=== PATIENT | female | born 1985 | race Hispanic/Latino ===

== ENCOUNTER 2017-08-04 14:21 | Emergency (ER) | payer MEDICAID ==
[2017-08-04 14:35] VITALS: BP 139/62
[2017-08-04] MEDS ORDERED: DUONEB *Not for PRN Use IH ONE (18:52)
[2017-08-04] MEDS ORDERED: DELTASONE PO ONE (18:53)
--- NOTE | 2017-08-04 19:30 | Emergency Department Report ---
- General Chief Complaint: Upper Respiratory Infection Stated Complaint: CHEST PAIN Time Seen by Provider: 08/04/17 18:51 Source: patient Mode of arrival: Ambulatory Limitations: No Limitations - History of Present Illness Initial Comments: 32-year-old female past medical history multiple medical allergies, asthma presents with complaint of one week of worsening productive cough and rhinorrhea sore throat. Patient states she has been using [id number] medicines with minimal relief of her symptoms. No audible wheezing or stridor. States that cough is productive with greenish yellow sputum. Patient states she recently came into contact with someone who was diagnosed with flu and is concerned that she may have developed flulike symptoms. Patient awake alert and oriented 3 accompanied by family member at bedside MD Complaint: cough, sore throat, rhinorrhea, sinus pain Onset/Timin -: week(s) Severity: moderate Improves With: OTC cold medicine Associated Symptoms: cough Treatments Prior to Arrival: "cold medicine" - Related Data Home Medications Medication Instructions Recorded Confirmed Last Taken Albuterol *Only Ed* [Proventil 2.5 mg IH Q4H PRN 01/31/16 06/03/16 Unknown 0.5% NEBS] Previous Rx's Medication Instructions Recorded Last Taken Type ALBUTEROL Inhaler [ProAir HFA 2 puff IH QID PRN #1 inha 08/04/17 Unknown Rx Inhaler] Acetaminophen [Acetaminophen TAB] 500 mg PO Q6HR PRN #30 tablet 08/04/17 Unknown Rx Azithromycin [Zithromax Z-KURT] 250 mg PO QDAY #6 tablet 08/04/17 Unknown Rx Phenylephrine/Dm/Acetaminop/GG 10 ml PO Q6H PRN #1 liquid 08/04/17 Unknown Rx [Mucinex Rccd-Owc-Mrqimethdx Lq] predniSONE [Deltasone] 40 mg PO QDAY #10 tab 08/04/17 Unknown Rx Allergies Allergy/AdvReac Type Severity Reaction Status Date / Time aspirin Allergy Nausea Verified 08/02/15 14:38 ciprofloxacin [From Cipro] Allergy Unknown Verified 08/02/15 14:38 ciprofloxacin HCl Allergy Unknown Verified 08/02/15 14:38 [From Cipro] phenazopyridine HCl Allergy Nausea Verified 01/31/16 11:46 [From Azo] tramadol Allergy Rash Verified 08/02/15 14:38 ED Review of Systems ROS: Stated complaint: CHEST PAIN Other details as noted in HPI Constitutional: denies: chills, fever Eyes: denies: eye pain, eye discharge, vision change ENT: denies: ear pain, throat pain Respiratory: cough. denies: shortness of breath, wheezing Cardiovascular: denies: chest pain, palpitations Endocrine: no symptoms reported Gastrointestinal: denies: abdominal pain, nausea, diarrhea Genitourinary: denies: urgency, dysuria, discharge Musculoskeletal: denies: back pain, joint swelling, arthralgia Skin: denies: rash, lesions Neurological: denies: headache, weakness, paresthesias Psychiatric: denies: anxiety, depression Hematological/Lymphatic: denies: easy bleeding, easy bruising ED Past Medical Hx - Past Medical History Previous Medical History?: Yes Hx GERD: Yes Hx Headaches / Migraines: Yes (migraines) Hx Asthma: Yes (last "attack" 01/18/16) Hx HIV: No Additional medical history: heart mumur - Surgical History Past Surgical History?: Yes Hx Cholecystectomy: Yes - Social History Smoking Status: Never Smoker Substance Use Type: None - Medications Home Medications: Home Medications Medication Instructions Recorded Confirmed Last Taken Type Albuterol *Only Ed* [Proventil 2.5 mg IH Q4H PRN 01/31/16 06/03/16 Unknown History 0.5% NEBS] ALBUTEROL Inhaler [ProAir HFA 2 puff IH QID PRN #1 inha 08/04/17 Unknown Rx Inhaler] Acetaminophen [Acetaminophen TAB] 500 mg PO Q6HR PRN #30 tablet 08/04/17 Unknown Rx Azithromycin [Zithromax Z-KURT] 250 mg PO QDAY #6 tablet 08/04/17 Unknown Rx Phenylephrine/Dm/Acetaminop/GG 10 ml PO Q6H PRN #1 liquid 08/04/17 Unknown Rx [Mucinex Brlq-Hza-Aqupdivebc Lq] predniSONE [Deltasone] 40 mg PO QDAY #10 tab 08/04/17 Unknown Rx ED Physical Exam - General Limitations: No Limitations General appearance: alert, in no apparent distress - Head Head exam: Present: atraumatic, normocephalic - Eye Eye exam: Present: normal appearance, PERRL, EOMI - ENT ENT exam: Present: mucous membranes moist - Neck Neck exam: Present: normal inspection - Respiratory Respiratory exam: Present: normal lung sounds bilaterally. Absent: respiratory distress - Cardiovascular Cardiovascular Exam: Present: regular rate, normal rhythm. Absent: systolic murmur, diastolic murmur, rubs, gallop - GI/Abdominal GI/Abdominal exam: Present: soft, normal bowel sounds - Extremities Exam Extremities exam: Present: normal inspection - Back Exam Back exam: Present: normal inspection - Neurological Exam Neurological exam: Present: alert, oriented X3, CN II-XII intact, normal gait - Psychiatric Psychiatric exam: Present: normal affect, normal mood - Skin Skin exam: Present: warm, dry, intact, normal color. Absent: rash ED Course Vital Signs 08/04/17 08/04/17 08/04/17 14:25 19:12 19:16 Temperature 98.6 F Pulse Rate 97 H Pulse Rate [ 65 74 Anterior Bilateral Throughout] Respiratory 16 Rate Respiratory 16 16 Rate [Anterior Bilateral Throughout] Blood Pressure 139/62 O2 Sat by Pulse 99 Oximetry ED Medical Decision Making - Medical Decision Making A/P: Acute bronchitis 1-will treat patient empirically with azithromycin, Mucinex, naproxen and albuterol inhaler, prednisone 2-follow-up with primary care doctor, flu swab negative, chest x-ray unremarkable Critical care attestation.: If time is entered above; I have spent that time in minutes in the direct care of this critically ill patient, excluding procedure time. ED Disposition Clinical Impression: Acute bronchitis Qualifiers: Bronchitis organism: unspecified organism Qualified Code(s): J20.9 - Acute bronchitis, unspecified Reactive airway disease Qualifiers: Asthma severity: unspecified severity Asthma persistence: unspecified Asthma complication type: with acute exacerbation Qualified Code(s): J45.901 - Unspecified asthma with (acute) exacerbation Disposition: DC-01 TO HOME OR SELFCARE Is pt being admited?: No Does the pt Need Aspirin: No Condition: Stable Instructions: Acute Bronchitis (ED), Reactive Airways Disease (ED) Prescriptions: Acetaminophen [Acetaminophen TAB] 500 mg PO Q6HR PRN #30 tablet PRN Reason: Pain ALBUTEROL Inhaler [ProAir HFA Inhaler] 2 puff IH QID PRN #1 inha PRN Reason: Shortness Of Breath Azithromycin [Zithromax Z-KURT] 250 mg PO QDAY #6 tablet Phenylephrine/Dm/Acetaminop/GG [Mucinex Cgkt-Lfs-Tstxjhitzl Lq] 10 ml PO Q6H PRN #1 liquid PRN Reason: Cough predniSONE [Deltasone] 40 mg PO QDAY #10 tab Referrals: FRANKI LO MD [Primary Care Provider] - 3-5 Days Time of Disposition: 21:31
--- NOTE | 2017-08-04 21:24 | XRay Report ---
FINAL REPORT EXAM: XR CHEST ROUTINE 2V HISTORY: coughing TECHNIQUE: Two views of the chest were performed Comparison: None FINDINGS: Heart size is normal. Lungs are clear and well expanded without focal infiltrate or consolidation. There is a platelike scar in the left lateral lower lung. Costophrenic angles are sharp. Imaged axial skeleton is unremarkable. IMPRESSION: Platelike scar left lateral lower lung. No focal infiltrate.
[2017-08-04] MEDS ORDERED: TYLENOL PO ONE (21:42)
== END 2017-08-04 20:50 | disposition home or self-care (01) ==
LOC: ED 14:21
DX: J45.909 Unspecified asthma, uncomplicated (principal); J20.9 Acute bronchitis, unspecified; K21.9 Gastro-esophageal reflux disease without esophagitis; G43.909 Migraine, unspecified, not intractable, without status migrainosus; Z88.6 Allergy status to analgesic agent; Z88.1 Allergy status to other antibiotic agents; Z88.8 Allergy status to other drugs, medicaments and biological substances
CPT/HCPCS: 71020; 87400; 87491; 93005; 93010; 94640; 99283; J7512

== ENCOUNTER 2018-11-15 11:01 | Emergency (ER) | payer MEDICAID, MEDICARE ==
[2018-11-15 11:20] VITALS: BP 142/71
[2018-11-15] MEDS ORDERED: FIORICET PO ONE (12:59)
[2018-11-15 13:25] LABS: Basophils % (Auto) 0.5 % (0.0-1.8); Eosinophils # (Auto) 0.3 K/mm3 (0.0-0.4); Eosinophils % (Auto) 3.1 % (0.0-4.3); Hematocrit 36.7 % (30.3-42.9); Hemoglobin 12.4 gm/dl (10.1-14.3); Lymphocytes # (Auto) 3.7 K/mm3 (1.2-5.4); Lymphocytes % (Auto) 37.5 % (13.4-35.0); Mean Corpuscular HGB Conc 34 % (30-34); Mean Corpuscular Volume 84 fl (79-97); Monocytes # (Auto) 0.8 K/mm3 (0.0-0.8); Monocytes % (Auto) 8.2 % (0.0-7.3); Platelet Count 371 K/mm3 (140-440); Red Blood Count 4.39 M/mm3 (3.65-5.03); Red Cell Distribution Width 13.6 % (13.2-15.2)
[2018-11-15 13:46] LABS: BUN/Creatinine Ratio 24; Blood Urea Nitrogen 12 mg/dL (7-17); Calcium 8.5 mg/dL (8.4-10.2); Hemolysis Index 12
--- NOTE | 2018-11-15 14:01 | Emergency Department Report ---
HPI - General Chief Complaint: Chest Pain Time Seen by Provider: 11/15/18 12:54 - HPI HPI: 33-year-old female presents to the emergency department with complaint of left ear pain, a mild headache and some right upper chest pain that all started this morning. The patient has a history of migraine headaches and says that this feels similar. She also has a past medical history of GERD and a heart murmur. She has not taken anything for her symptoms prior to presentation. She denies any fever, shortness of breath, back pain, nausea, vomiting or diaphoresis. She denies any vision change, slurred speech or any neurological deficits. No recent travel or sick contacts at home. Her primary care physician is Dr. Franki Ordonez. ED Past Medical Hx - Past Medical History Hx GERD: Yes Hx Headaches / Migraines: Yes (migraines) Hx Asthma: Yes (last treated 11/10/17) Hx HIV: No Additional medical history: heart mumur - Surgical History Past Surgical History?: Yes Hx Cholecystectomy: Yes Additional Surgical History: hernia repair. tubal ligation - Social History Smoking Status: Never Smoker Substance Use Type: None - Medications Home Medications: Home Medications Medication Instructions Recorded Confirmed Last Taken Type RX: ALBUTEROL Inhaler (OR & NICU) 2 puff IH QID PRN #1 inha 08/04/17 11/14/17 Unknown Rx [ProAir HFA Inhaler] Dextromethorphan Hb/Doxylamine 20 ml PO PRN PRN 11/14/17 11/14/17 Unknown History [Vicks Nyquil Cough Liquid] RX: Gabapentin [Neurontin] 300 mg PO TID 11/14/17 11/14/17 Unknown History ED Review of Systems ROS: Stated complaint: HEADACHE/EARACHE/EYE HURT Other details as noted in HPI Comment: All other systems reviewed and negative Constitutional: denies: chills, fever Eyes: denies: eye pain, vision change ENT: ear pain. denies: throat pain Respiratory: denies: cough, shortness of breath Cardiovascular: chest pain. denies: edema Gastrointestinal: denies: abdominal pain, vomiting Genitourinary: denies: dysuria, discharge Musculoskeletal: denies: back pain, joint swelling Skin: denies: rash, lesions Neurological: headache. denies: numbness, paresthesias Physical Exam - Physical Exam Vital Signs: Vital Signs 11/15/18 11:19 Temperature 98.2 F Pulse Rate 87 Respiratory 16 Rate Blood Pressure 142/71 O2 Sat by Pulse 100 Oximetry Physical Exam: GENERAL: The patient is well-developed well-nourished. HEENT: Normocephalic. Atraumatic. Patient has moist mucous membranes. Oropharynx is clear. Normal-appearing bilateral external ear canals and tympanic membranes. EYES: Extraocular motions are intact. Pupils are equal and reactive to light bilaterally. No nystagmus. NECK: Supple. Trachea is midline. CHEST/LUNGS: Clear to auscultation. There is no respiratory distress noted. The right-sided chest discomfort is reproducible to palpation. HEART/CARDIOVASCULAR: Regular. There is no tachycardia. There is no obvious murmur. ABDOMEN: Abdomen is soft, nontender. Patient has normal bowel sounds. There is no abdominal distention. SKIN: Skin is warm and dry. NEURO: The patient is awake, alert, and oriented. The patient is cooperative. The patient has no focal neurologic deficits. The patient has normal speech. Cranial nerves II through XII grossly intact. MUSCULOSKELETAL: There is no tenderness or deformity. There is no limitation range of motion. There is no evidence of acute injury. ED Course Vital Signs 11/15/18 11:19 Temperature 98.2 F Pulse Rate 87 Respiratory 16 Rate Blood Pressure 142/71 O2 Sat by Pulse 100 Oximetry ED Medical Decision Making - Lab Data Result diagrams: 11/15/18 13:18 11/15/18 13:16 - EKG Data -: EKG Interpreted by Ny EKG shows normal: sinus rhythm, axis, intervals, QRS complexes, ST-T waves Rate: normal - EKG Data When compared to previous EKG there are: previous EKG unavailable Interpretation: normal EKG - Radiology Data Radiology results: image reviewed interpreted by me: Chest x-ray does not show any pneumothorax, pleural effusion, pneumonia or obvious focal consolidation. - Medical Decision Making Patient presents to the emergency department with multiple complaints including left ear pain, a headache similar to previous migraine headaches, right upper lateral chest pain. EKG did not show any signs of ST elevation [place], ischemia or dysrhythmia. Chest x-ray did not show any focal consolidation, pneumothorax, pneumonia, pleural effusions, or any other acute process. Her labs were unr emarkable including a CBC, panel and a troponin. I do not see any focus of infection on physical examination. She is low on the heart score criteria and ESTELITA score and her pain is reproducible to palpation. For all these reasons patient appears safe for discharge home at this time. She is instructed to follow-up with Dr. Ordonez, primary care, but to return to the emergency Department with any worsening of her symptoms or any acute distress. - Differential Diagnosis costochondritis, WA, otitis media, otitis externa, migraine or tension head Critical Care Time: No Critical care attestation.: If time is entered above; I have spent that time in minutes in the direct care of this critically ill patient, excluding procedure time. ED Disposition Clinical Impression: Right-sided chest pain, Otalgia of left ear Headache Qualifiers: Headache type: unspecified Headache chronicity pattern: unspecified pattern Intractability: not intractable Qualified Code(s): R51 - Headache Disposition: DC-01 TO HOME OR SELFCARE Is pt being admited?: No Condition: Stable Instructions: Chest Pain (ED), Migraine Headache (ED), Acute Headache (ED), Earache (ED) Additional Instructions: Please follow-up with your primary care physician in the next few days. Return to the emergency department immediately with any return of your chest pain, worsening of your symptoms, or if any acute distress. Referrals: FRANKI ORDONEZ MD [Referring] - [facility] Time of Disposition: 14:37 - Assessment Assessment Interval: Baseline - Level of Consciousness 1a. Level of Consciousness: alert/keenly responsive - LOC Questions 1b. LOC Questions: answers both correctly - LOC Command 1c. LOC Commands: performs tasks correctly - Best Gaze 2. Best Gaze: normal - Visual 3. Visual: no visual loss - Facial Palsy 4. Facial Palsy: normal symmetrical movement - Motor Arm 5b. Motor Arm Right: no drift 5a. Motor Arm Left: no drift - Motor Leg 6b. Motor Leg Right: no drift 6a. Motor Leg Left: no drift - Limb Ataxia 7. Limb Ataxia: absent - Sensory 8. Sensory: normal - Best Language 9. Best Language: no aphasia - Dysarthria 10. Dysarthria: normal - Extinction and Inattention 11. Extinction/Inattention: no abnormality - Scoring Total Score: 0 Stroke Severity: No Stroke Symptoms Heart Score - HEART Score History: Slightly suspicious EKG: Normal Age: < 45 Risk factors: No known risk factors Troponin: < normal limit HEART Score: 0 - Critical Actions Critical Actions: 0-3 pts:0.9-1.7%risk of adverse cardiac event.Candidate for discharge
[2018-11-15] MEDS ORDERED: ZOFRAN ODT PO ONE (14:35)
--- NOTE | 2018-11-15 18:28 | XRay Report ---
PROCEDURE: XR CHEST ROUTINE 2V TECHNIQUE: Chest, PA and latera HISTORY: Chest Pain COMPARISON: None FINDINGS: The heart size is normal. There is no pulmonary vascular congestion seen. Mediastinal contours are normal. Lungs are clear. There is no pleural effusion seen. There is no pneumothorax seen. IMPRESSION: No acute abnormality identified. This document is electronically signed by Stephanie Arvizu MD., November 15 2018 02:27:04 PM ET
== END 2018-11-15 14:57 | disposition home or self-care (01) ==
LOC: ED 11:01
DX: H92.02 Otalgia, left ear (principal); R07.89 Other chest pain; K21.9 Gastro-esophageal reflux disease without esophagitis; G43.909 Migraine, unspecified, not intractable, without status migrainosus; J45.909 Unspecified asthma, uncomplicated; Z90.49 Acquired absence of other specified parts of digestive tract; Z98.51 Tubal ligation status; Z88.6 Allergy status to analgesic agent; Z88.1 Allergy status to other antibiotic agents; Z88.8 Allergy status to other drugs, medicaments and biological substances
CPT/HCPCS: 36415; 71046; 80048; 84484; 85025; 93005; 93010; 99284; Q0162

== ENCOUNTER 2018-12-21 12:41 | Emergency (ER) | payer MEDICAID, MEDICARE ==
[2018-12-21 13:24] VITALS: BP 130/75
--- NOTE | 2018-12-21 13:30 | Emergency Department Report ---
ED ENT HPI - General Chief complaint: Earache Stated complaint: LT EAR PAIN Time Seen by Provider: 12/21/18 13:24 Source: patient Mode of arrival: Ambulatory Limitations: No Limitations - History of Present Illness MD complaint: ear pain -: Sudden, days(s) (2) Location: L ear Severity: moderate Quality: dull Improves with: none Worsens with: none Associated Symptoms: denies: gum swelling, toothache, sore throat, tinnitus, discharge from ear, rhinorrhea - Related Data Home Medications Medication Instructions Recorded Confirmed Last Taken Dextromethorphan Hb/Doxylamine 20 ml PO PRN PRN 11/14/17 11/14/17 Unknown [Vicks Nyquil Cough Liquid] Gabapentin [Neurontin] 300 mg PO TID 11/14/17 11/14/17 Unknown Previous Rx's Medication Instructions Recorded Last Taken Type ALBUTEROL Inhaler (OR & NICU) 2 puff IH QID PRN #1 inha 08/04/17 Unknown Rx [ProAir HFA Inhaler] Neomy/Polymyx B/Hc (Otic) Soln 4 drops OT TID #1 bottle 12/21/18 Unknown Rx [Cortisporin (Otic) Soln] Allergies Allergy/AdvReac Type Severity Reaction Status Date / Time aspirin Allergy Nausea Verified 11/14/17 16:04 ciprofloxacin [From Cipro] Allergy Unknown Verified 11/14/17 16:04 doxycycline Allergy N&V Verified 11/14/17 16:04 ferrous sulfate Allergy Rash Verified 11/14/17 16:04 phenazopyridine HCl Allergy Nausea Verified 11/14/17 16:04 [From Azo] sulfamethoxazole Allergy hallucinate Verified 11/14/17 16:04 [From Bactrim] tramadol Allergy Rash Verified 11/14/17 16:04 trimethoprim [From Bactrim] Allergy hallucinate Verified 11/14/17 16:04 ED Dental HPI - General Chief complaint: Earache Stated complaint: LT EAR PAIN Time Seen by Provider: 12/21/18 13:24 Source: patient Mode of arrival: Ambulatory Limitations: No Limitations - Related Data Home Medications Medication Instructions Recorded Confirmed Last Taken Dextromethorphan Hb/Doxylamine 20 ml PO PRN PRN 11/14/17 11/14/17 Unknown [Vicks Nyquil Cough Liquid] Gabapentin [Neurontin] 300 mg PO TID 11/14/17 11/14/17 Unknown Previous Rx's Medication Instructions Recorded Last Taken Type ALBUTEROL Inhaler (OR & NICU) 2 puff IH QID PRN #1 inha 08/04/17 Unknown Rx [ProAir HFA Inhaler] Neomy/Polymyx B/Hc (Otic) Soln 4 drops OT TID #1 bottle 12/21/18 Unknown Rx [Cortisporin (Otic) Soln] Allergies Allergy/AdvReac Type Severity Reaction Status Date / Time aspirin Allergy Nausea Verified 11/14/17 16:04 ciprofloxacin [From Cipro] Allergy Unknown Verified 11/14/17 16:04 doxycycline Allergy N&V Verified 11/14/17 16:04 ferrous sulfate Allergy Rash Verified 11/14/17 16:04 phenazopyridine HCl Allergy Nausea Verified 11/14/17 16:04 [From Azo] sulfamethoxazole Allergy hallucinate Verified 11/14/17 16:04 [From Bactrim] tramadol Allergy Rash Verified 11/14/17 16:04 trimethoprim [From Bactrim] Allergy hallucinate Verified 11/14/17 16:04 ED Review of Systems ROS: Stated complaint: LT EAR PAIN Other details as noted in HPI Constitutional: denies: chills, fever Eyes: denies: eye pain, eye discharge, vision change ENT: denies: ear pain, throat pain Respiratory: denies: cough, shortness of breath, wheezing Cardiovascular: denies: chest pain, palpitations Endocrine: no symptoms reported Gastrointestinal: denies: abdominal pain, nausea, diarrhea Genitourinary: denies: urgency, dysuria, discharge Musculoskeletal: denies: back pain, joint swelling, arthralgia Skin: denies: rash, lesions Neurological: denies: headache, weakness, paresthesias Psychiatric: denies: anxiety, depression Hematological/Lymphatic: denies: easy bleeding, easy bruising ED Past Medical Hx - Past Medical History Hx GERD: Yes Hx Headaches / Migraines: Yes (migraines) Hx Asthma: Yes (last treated 11/10/17) Hx HIV: No Additional medical history: heart mumur - Surgical History Hx Cholecystectomy: Yes Additional Surgical History: hernia repair. tubal ligation - Social History Smoking Status: Never Smoker Substance Use Type: None - Medications Home Medications: Home Medications Medication Instructions Recorded Confirmed Last Taken Type ALBUTEROL Inhaler (OR & NICU) 2 puff IH QID PRN #1 inha 08/04/17 11/14/17 Unknown Rx [ProAir HFA Inhaler] Dextromethorphan Hb/Doxylamine 20 ml PO PRN PRN 11/14/17 11/14/17 Unknown History [Vicks Nyquil Cough Liquid] Gabapentin [Neurontin] 300 mg PO TID 11/14/17 11/14/17 Unknown History Neomy/Polymyx B/Hc (Otic) Soln 4 drops OT TID #1 bottle 12/21/18 Unknown Rx [Cortisporin (Otic) Soln] ED Physical Exam - General Limitations: No Limitations General appearance: alert, in no apparent distress - Head Head exam: Present: atraumatic, normocephalic - Eye Eye exam: Present: normal appearance, PERRL. Absent: scleral icterus, conjunctival injection Pupils: Present: normal accommodation - ENT ENT exam: Present: mucous membranes moist, other (redness to canal) - Neck Neck exam: Present: normal inspection - Respiratory Respiratory exam: Present: normal lung sounds bilaterally. Absent: respiratory distress - Cardiovascular Cardiovascular Exam: Present: regular rate, normal rhythm. Absent: systolic murmur, diastolic murmur, rubs, gallop - GI/Abdominal GI/Abdominal exam: Present: soft, normal bowel sounds - Extremities Exam Extremities exam: Present: normal inspection - Back Exam Back exam: Present: normal inspection - Neurological Exam Neurological exam: Present: alert, oriented X3, CN II-XII intact - Psychiatric Psychiatric exam: Present: normal affect, normal mood. Absent: flat affect, manic - Skin Skin exam: Present: warm, dry, intact, normal color. Absent: rash, diaphoretic, erythema, petechiae, pallor ED Course Vital Signs 12/21/18 13:22 Temperature 98 F Pulse Rate 97 H Respiratory 20 Rate Blood Pressure 130/75 O2 Sat by Pulse 100 Oximetry Critical care attestation.: If time is entered above; I have spent that time in minutes in the direct care of this critically ill patient, excluding procedure time. ED Disposition Clinical Impression: Otitis externa Disposition: - TO HOME OR SELFCARE Is pt being admited?: No Does the pt Need Aspirin: No Condition: Stable Instructions: Otitis Externa (ED) Prescriptions: Neomy/Polymyx B/Hc (Otic) Soln [Cortisporin (Otic) Soln] 4 drops OT TID #1 bottle Referrals: [facility] [Provider Group] - 3-5 Days
[2018-12-21] MEDS ORDERED: IBUPROFEN PO ONE ×2 (13:36→13:37)
== END 2018-12-21 14:04 | disposition home or self-care (01) ==
LOC: ED 12:41
DX: H60.92 Unspecified otitis externa, left ear (principal); K21.9 Gastro-esophageal reflux disease without esophagitis; G43.909 Migraine, unspecified, not intractable, without status migrainosus; J45.909 Unspecified asthma, uncomplicated; Z90.49 Acquired absence of other specified parts of digestive tract; Z98.51 Tubal ligation status; Z88.6 Allergy status to analgesic agent; Z88.1 Allergy status to other antibiotic agents; Z88.2 Allergy status to sulfonamides; Z88.8 Allergy status to other drugs, medicaments and biological substances
CPT/HCPCS: 99282

== ENCOUNTER 2019-02-28 03:16 | Emergency (ER) | payer MEDICAID, MEDICARE ==
[2019-02-28 03:50] LABS: Basophils # (Auto) 0.1 K/mm3 (0.0-0.1); Basophils % (Auto) 0.7 % (0.0-1.8); Eosinophils # (Auto) 0.5 K/mm3 (0.0-0.4); Eosinophils % (Auto) 4.2 % (0.0-4.3); Hematocrit 35.7 % (30.3-42.9); Hemoglobin 12.4 gm/dl (10.1-14.3); Lymphocytes # (Auto) 3.8 K/mm3 (1.2-5.4); Lymphocytes % (Auto) 35.7 % (13.4-35.0); Mean Corpuscular HGB Conc 35 % (30-34); Mean Corpuscular Volume 84 fl (79-97); Monocytes % (Auto) 8.9 % (0.0-7.3); Platelet Count 379 K/mm3 (140-440); Red Blood Count 4.25 M/mm3 (3.65-5.03); Red Cell Distribution Width 13.4 % (13.2-15.2)
[2019-02-28 04:15] LABS: Alanine Aminotransferase 51 units/L (7-56); Albumin 3.7 g/dL (3.9-5); BUN/Creatinine Ratio 30; Blood Urea Nitrogen 15 mg/dL (7-17); Calcium 9.1 mg/dL (8.4-10.2); Hemolysis Index 3
[2019-02-28] MEDS ORDERED: PROTONIX IV ONE (05:20)
[2019-02-28] MEDS ORDERED: ZOFRAN IV ONE (05:20)
[2019-02-28] MEDS ORDERED: NACL 0.9% 1000 ML 1,000 ML IV ONE (05:20)
[2019-02-28] MEDS ORDERED: BENTYL IM ONE (05:21)
--- NOTE | 2019-02-28 05:22 | Emergency Department Report ---
Vomiting/Diarrhea - HPI Chief Complaint: Abdominal Pain Stated Complaint: DIVERTICULITIS VOMITTING LOSS OF APPETITE Duration: 1 week Severity: moderate Nausea/Vomiting Severity: Moderate Diarrhea Severity: None Pain Location: Generalized Pain Severity: Mild Symptoms: No Watery Diarrhea, No Bloody diarrhea, No Fever, No Able to Tolerate Fluids, No Recent Unusual Foods, No Recent Untreated Water, No Recent use of Antibiotics, No Family w/ Similar Symptoms, No Contacts w/ Similar Symptoms, No Rash, No Hematuria, No Recent URI Symptoms Other History: This is a 33-year-old female that presents to the emergency room with abdominal cramping and nausea or vomiting while week. Past medical history of asthma, GERD, migraines, and diverticulosis. Patient states she was seen at the [facility] last Saturday and had a abdominal ultrasound and CT scan. She was diagnosed with diverticulitis and started on Augmentin and Flagyl. Patient states she went to see her PCP last week due to abdominal cramping. She was instructed to continue taking antibiotics and started on Tylenol No. 3. Patient states now her main concern is not been able to keep anything down. ED Review of Systems ROS: Stated complaint: DIVERTICULITIS VOMITTING LOSS OF APPETITE Other details as noted in HPI Constitutional: denies: chills, fever Respiratory: denies: cough, shortness of breath, wheezing Cardiovascular: denies: chest pain, palpitations Gastrointestinal: abdominal pain, nausea, vomiting. denies: diarrhea Musculoskeletal: denies: back pain, joint swelling, arthralgia Skin: denies: rash, lesions Neurological: denies: headache, weakness, paresthesias Psychiatric: denies: anxiety, depression ED Past Medical Hx - Past Medical History Previous Medical History?: Yes Hx GERD: Yes Hx Headaches / Migraines: Yes (migraines) Hx Asthma: Yes (last treated 11/10/17) Hx HIV: No Additional medical history: heart mumur, diverticulosis - Surgical History Past Surgical History?: Yes Hx Cholecystectomy: Yes Additional Surgical History: hernia repair. tubal ligation - Social History Smoking Status: Never Smoker Substance Use Type: None - Medications Home Medications: Home Medications Medication Instructions Recorded Confirmed Last Taken Type ALBUTEROL Inhaler (OR & NICU) 2 puff IH QID PRN #1 inha 08/04/17 11/14/17 Unknown Rx [ProAir HFA Inhaler] Dextromethorphan Hb/Doxylamine 20 ml PO PRN PRN 11/14/17 11/14/17 Unknown History [Vicks Nyquil Cough Liquid] Gabapentin [Neurontin] 300 mg PO TID 11/14/17 11/14/17 Unknown History Neomy/Polymyx B/Hc (Otic) Soln 4 drops OT TID #1 bottle 12/21/18 Unknown Rx [Cortisporin (Otic) Soln] Acetaminophen/Codeine [Tylenol 1 tab PO Q6H PRN #10 tab 02/28/19 Unknown Rx /Codeine # 3 tab] Dicyclomine [Bentyl] 20 mg PO QID PRN #20 tablet 02/28/19 Unknown Rx Ondansetron [Zofran Odt] 4 mg PO Q8HR PRN #30 tab.rapdis 02/28/19 Unknown Rx Vomiting Diarrhea Exam - Exam General: Vital signs noted. No distress. Alert and acting appropriately. HEENT: Yes Pharyngeal Erythema (erythematous posterior pharynx, uvula midline), Yes Moist Mucous Membranes, No Pharyngeal Exudates, No Rhinorrhea, No Conjucti lola Injection, No Frontal Tenderness, No Maxillary Tenderness Neck: No Adenopathy, No Rigidity Lungs: Yes Clear Lung Sounds, Yes Good Air Exchange, No Wheezes, No Stridor, No Cough, No Nasal Flaring, No Retractions, No Use of Accessory Muscles Heart exam: Regular: Yes, Murmur: No, Tachycardia: No Abdomen: Tenderness: No, Peritoneal Signs: No, Distention: No, Hyperactive Bowel sounds: No Skin exam: Rash: No, Edema: No, Normal turgor: Yes Neurologic: Alert and oriented, no deficits. Musculoskeletal: Unremarkable. ED Course Vital Signs 02/28/19 03:34 Temperature 98 F Pulse Rate 72 Respiratory 18 Rate Blood Pressure 127/70 [Left] O2 Sat by Pulse 100 Oximetry ED Medical Decision Making - Lab Data Result diagrams: 02/28/19 03:39 02/28/19 03:39 Lab Results 02/28/19 02/28/19 02/28/19 Range/Units 03:39 03:39 03:39 WBC 10.7 (4.5-11.0) K/mm3 RBC 4.25 (3.65-5.03) M/mm3 Hgb 12.4 (10.1-14.3) gm/dl Hct 35.7 (30.3-42.9) % MCV 84 (79-97) fl MCH 29 (28-32) pg MCHC 35 H (30-34) % RDW 13.4 (13.2-15.2) % Plt Count 379 (140-440) K/mm3 Lymph % (Auto) 35.7 H (13.4-35.0) % Barry % (Auto) 8.9 H (0.0-7.3) % Eos % (Auto) 4.2 (0.0-4.3) % Baso % (Auto) 0.7 (0.0-1.8) % Lymph # 3.8 (1.2-5.4) K/mm3 Barry # 1.0 H (0.0-0.8) K/mm3 Eos # 0.5 H (0.0-0.4) K/mm3 Baso # 0.1 (0.0-0.1) K/mm3 Seg Neutrophils % 50.5 (40.0-70.0) % Seg Neutrophils # 5.4 (1.8-7.7) K/mm3 Sodium 140 (137-145) mmol/L Potassium 3.7 (3.6-5.0) mmol/L Chloride 102.3 (98-107) mmol/L Carbon Dioxide 25 (22-30) mmol/L Anion Gap 16 mmol/L BUN 15 (7-17) mg/dL Creatinine 0.5 L (0.7-1.2) mg/dL Estimated GFR > 60 ml/min BUN/Creatinine Ratio 30 % Glucose 83 (65-100) mg/dL Calcium 9.1 (8.4-10.2) mg/dL Total Bilirubin 0.70 (0.1-1.2) mg/dL AST 88 H (5-40) units/L ALT 51 (7-56) units/L Alkaline Phosphatase 86 (35-129) units/L Total Protein 6.9 (6.3-8.2) g/dL Albumin 3.7 L (3.9-5) g/dL Albumin/Globulin Ratio 1.2 % Lipase 11 L (13-60) units/L HCG, Qual Negative (Negative) Urine Color (Yellow) Urine Turbidity (Clear) Urine pH (5.0-7.0) Ur Specific Buhl (1.003-1.030) Urine Protein (Negative) mg/dL Urine Glucose (UA) (Negative) mg/dL Urine Ketones (Negative) mg/dL Urine Blood (Negative) Urine Nitrite (Negative) Urine Bilirubin (Negative) Urine Urobilinogen (<2.0) mg/dL Ur Leukocyte Esterase (Negative) Urine WBC (Auto) (0.0-6.0) /HPF Urine RBC (Auto) (0.0-6.0) /HPF 02/28/19 Range/Units 04:45 WBC (4.5-11.0) K/mm3 RBC (3.65-5.03) M/mm3 Hgb (10.1-14.3) gm/dl Hct (30.3-42.9) % MCV (79-97) fl MCH (28-32) pg MCHC (30-34) % RDW (13.2-15.2) % Plt Count (140-440) K/mm3 Lymph % (Auto) (13.4-35.0) % Barry % (Auto) (0.0-7.3) % Eos % (Auto) (0.0-4.3) % Baso % (Auto) (0.0-1.8) % Lymph # (1.2-5.4) K/mm3 Barry # (0.0-0.8) K/mm3 Eos # (0.0-0.4) K/mm3 Baso # (0.0-0.1) K/mm3 Seg Neutrophils % (40.0-70.0) % Seg Neutrophils # (1.8-7.7) K/mm3 Sodium (137-145) mmol/L Potassium (3.6-5.0) mmol/L Chloride (98-107) mmol/L Carbon Dioxide (22-30) mmol/L Anion Gap mmol/L BUN (7-17) mg/dL Creatinine (0.7-1.2) mg/dL Estimated GFR ml/min BUN/Creatinine Ratio % Glucose (65-100) mg/dL Calcium (8.4-10.2) mg/dL Total Bilirubin (0.1-1.2) mg/dL AST (5-40) units/L ALT (7-56) units/L Alkaline Phosphatase (35-129) units/L Total Protein (6.3-8.2) g/dL Albumin (3.9-5) g/dL Albumin/Globulin Ratio % Lipase (13-60) units/L HCG, Qual (Negative) Urine Color Corry (Yellow) Urine Turbidity Cloudy (Clear) Urine pH 5.0 (5.0-7.0) Ur Specific Buhl 1.029 (1.003-1.030) Urine Protein <15 mg/dl (Negative) mg/dL Urine Glucose (UA) Neg (Negative) mg/dL Urine Ketones Neg (Negative) mg/dL Urine Blood Sm (Negative) Urine Nitrite Neg (Negative) Urine Bilirubin Neg (Negative) Urine Urobilinogen < 2.0 (<2.0) mg/dL Ur Leukocyte Esterase Neg (Negative) Urine WBC (Auto) < 1.0 (0.0-6.0) /HPF Urine RBC (Auto) < 1.0 (0.0-6.0) /HPF - Medical Decision Making Patient was examined by me. Vitals are normal and patient is in no acute distress. Obtained a CBC, CMP, hCG, and urinalysis. Patient's liver function is elevated but followed by primary care. Patient recently had a CT scan and ultrasound with [facility] with a diagnosis of diverticulitis last week. There was negative abdominal tenderness on with focal exam. Patient given normal saline, Bentyl, and Zofran. By mouth challenge tolerated. Patient reports cramping resolved. Start Bentyl, Zofran, and Tylenol No. 3. She was instructed to complete antibiotics as prescribed from [facility]. Plan discussed with patient to discharge home and treat outpatient. She agrees with ER plan. Patient discharged home in stable condition. Follow up with PCP in 2-3 days. Critical care attestation.: If time is entered above; I have spent that time in minutes in the direct care of this critically ill patient, excluding procedure time. ED Disposition Clinical Impression: Abdominal cramping, History of diverticulitis Nausea & vomiting Qualifiers: Vomiting type: unspecified Vomiting Intractability: intractable Qualified Code(s): R11.2 - Nausea with vomiting, unspecified Disposition: DC- TO HOME OR SELFCARE Is pt being admited?: No Does the pt Need Aspirin: No Condition: Stable Instructions: Abdominal Pain (ED), Diverticulitis Diet (ED), Acute Nausea and Vomiting (ED) Additional Instructions: Complete antibiotics as prescribed from your primary care doctor. Follow-up with your primary care doctor in the next 3-5 days. Tonsillectomy emergency room with worsening symptoms. Prescriptions: Dicyclomine [Bentyl] 20 mg PO QID PRN #20 tablet PRN Reason: Spasms Acetaminophen/Codeine [Tylenol /Codeine # 3 tab] 1 tab PO Q6H PRN #10 tab PRN Reason: Pain , Severe (7-10) Ondansetron [Zofran Odt] 4 mg PO Q8HR PRN #30 tab.rapdis PRN Reason: Nausea And Vomiting Referrals: VIDYA ELISE MD [Primary Care Provider] - 3-5 Days RUPERTO VERDE MD [Staff Physician] - 3-5 Days [facility] [Outside] - 3-5 Days Time of Disposition: 06:56
[2019-02-28 05:29] LABS: Bilirubin,Urine NEG (Negative); Blood,Urine SM (Negative); Color,Urine Amber (Yellow); Protein,Urine <15 mg/dL mg/dL (Negative); Urobilinogen,Urine < 2.0 mg/dL (<2.0); WBC,Urine < 1.0 /HPF (0.0-6.0)
[2019-02-28 05:56] LABS: RBC,Urine < 1.0 /HPF (0.0-6.0)
[2019-02-28] MEDS ORDERED: BENTYL PO ONE ×2 (06:04→07:00)
[2019-02-28] MEDS ORDERED: BENTYL ONE ×2 (06:14→06:17)
[2019-02-28 07:52] VITALS: BP 124/72
== END 2019-02-28 07:52 | disposition home or self-care (01) ==
LOC: ED 03:16
DX: R10.9 Unspecified abdominal pain (principal); R11.2 Nausea with vomiting, unspecified; K21.9 Gastro-esophageal reflux disease without esophagitis; G43.909 Migraine, unspecified, not intractable, without status migrainosus; J45.909 Unspecified asthma, uncomplicated; Z90.49 Acquired absence of other specified parts of digestive tract; Z98.51 Tubal ligation status
CPT/HCPCS: 36415; 80053; 81001; 83690; 84703; 85025; 96374; 96375; 99283; C9113; J0500; J2405; J7030